=== PATIENT | female | born 1940 | race Caucasian/White ===

== ENCOUNTER 2016-12-20 08:00 | Day surgery (SDC) | payer MEDICARE, BC ==
--- NOTE | ~2016-12-20 | EGD ---
EGD REPORT [facility] [address] [address] NAME: MISA WHITE : [birth year] STATUS : REG [facility]#: [id number] AGE: 76 ADM/REG DATE : 12/20/16 MR#: [id number] REPORT SERV DATE: 12/20/16 DICTATED BY: WILLIAM BARRETT DATE: 12/20/16 REPORT STATUS : Draft TRANSCRIBED BY: [facility] DATE: 12/20/16 [facility] Center Patient Name: Misa White Date of : 1940 Attending MD: WILLIAM BARRETT MD Procedure Date No Time: 12/20/2016 Procedure: Colonoscopy Indications: Screening for colorectal malignant neoplasm Referring MD: VETO ROCHE Medicines: Propofol per Anesthesia Complications: No immediate complications. Procedure: Pre-Anesthesia Assessment: - ASA Grade Assessment: II - A patient with mild systemic disease. After I obtained informed consent, the scope was passed under direct vision. Throughout the procedure, the patient's blood pressure, pulse, and oxygen saturations were monitored continuously. The CF [id number] was introduced through the anus and advanced to the cecum, identified by appendiceal orifice and ileocecal valve. The colonoscopy was performed without difficulty. The patient tolerated the procedure well. The quality of the bowel preparation was good. Findings: The perianal and digital rectal examinations were normal. A sessile polyp was found in the sigmoid colon. The polyp was 4 mm in size. The polyp was removed with a cold biopsy forceps. Resection and retrieval were complete. Internal hemorrhoids were found during retroflexion and were Grade I (internal hemorrhoids that do not prolapse). The rest of the colon was normal. Impression: - One 4 mm polyp in the sigmoid colon. Resected and retrieved. - Internal hemorrhoids. Recommendation: - Discharge patient to home (ambulatory). Procedure Code(s): --- Professional --- 10831, Colonoscopy, flexible, proximal to splenic flexure; with biopsy, single or multiple Diagnosis Code(s): --- Professional --- D12.5, Benign neoplasm of sigmoid colon EGD REPORT [facility] [address] [place] [address] [address] [facility] [address] NAME: MISA WHITE : [birth year] STATUS : REG [facility] PAT#: [id number] AGE: 76 ADM/REG DATE : 12/20/16 MR#: [id number] REPORT SERV DATE: 12/20/16 DICTATED BY: WILLIAM BARRETT. DATE: 12/20/16 REPORT STATUS : Draft TRANSCRIBED BY: [employer] DATE: 12/20/16 K64.0, First degree hemorrhoids Z12.11, Encounter for screening for malignant neoplasm of colon CPT copyright 2013 [employer]. All rights reserved. The codes documented in this report are preliminary and upon physician pediatrician review may be revised to meet current compliance requirements. William Barrett MD WILLIAM BARRETT MD 12/20/2016 9:30 AM This report has been signed electronically. Number of Addenda: 0 Note Initiated On: 12/20/2016 9:14 AM Scope Withdrawal Time 0 hours 0 minutes 0 seconds [address] [place] [address]
[~2016-12-20 08:00] MED LIST: COREG12 PO; HYZAAR 50/12.51 TAB PO; KLOR-CON 1010 MEQ PO; LINZESS 145 M145 MCG PO; NEUR300 PO; ZOCOR20 PO
== END 2016-12-20 23:59 | disposition home or self-care (01) ==
LOC: DMU 08:00
PROVIDERS: Internal Medicine Gastroenterology
PROC: 0DBN8ZX Excision of Sigmoid Colon, Via Natural or Artificial Opening Endoscopic, Diagnostic (ICD-10-PCS; principal; 2016-12-20 10:00)
DX: Z12.11 Encounter for screening for malignant neoplasm of colon (principal); K64.0 First degree hemorrhoids; K59.00 Constipation, unspecified; I10 Essential (primary) hypertension; E78.5 Hyperlipidemia, unspecified; Z79.899 Other long term (current) drug therapy; Z90.710 Acquired absence of both cervix and uterus; Z98.890 Other specified postprocedural states
CPT/HCPCS: 88305